=== PATIENT | male | born 1950 | race Caucasian/White ===

== ENCOUNTER 2018-08-29 12:14 | Inpatient (IN) | payer MEDICARE, OTHER ==
[~2018-08-29] VITALS: Ht 177.8 cm; Wt 78.4 kg
[~2018-08-29 12:14] MED LIST: ASPI-903 PO; CARV25TA79 PO; COU5 PO; FOLI-49 PO; LOSA50TA14 PO; OMEP20CA16 PO; POTA473S3 PO
[2018-08-29] MEDS ORDERED: ERTAPENEM SODIUM 1 GM in SOD CHLORIDE 0.9% 100 ML IVPB ONE (15:00)
[2018-08-29] MEDS ORDERED: ACETAMINOPHEN 325 MG TAB PO ONE (17:00)
--- NOTE | 2018-08-29 17:36 | ERD ---
ER Documentation Chief Complaint Chief Complaint PAINFUL URINATION HPI 67-year-old male past medical history of CKD, CVA, GA with angioplasty, hypertension presents for dysuria for about a week. He denies any fevers or chills. He does admit to flank pain bilaterally. There is also be 5 out of 10. Patient states that he was in similar hospital about a month ago and was given IV antibiotics and discharged home with 5 days of IV antibiotics. Patient's daughter is present and presented a lab sheet from about 4 days ago which showed E. coli more than 100,000 noted to be ESBL. She states that they were notified of results just today and was told to go to the ER. ROS All systems reviewed and are negative except as per history of present illness. Medications Home Meds Reported Medications Citric Acid/Potassium Citrate (Cytra-K Oral Solution) 473 Ml Solution, 30 ML PO BID 12/12/14 Aspirin* (Aspirin* Chew) 81 Mg Tab.chew, 81 MG PO DAILY, TAB.CHEW 12/12/14 Carvedilol* (Carvedilol*) 25 Mg Tablet, 25 MG PO BID, TAB 12/12/14 Losartan Potassium* (Losartan Potassium*) 50 Mg Tablet, 50 MG PO QHS, TAB 12/12/14 Folic Acid* (Folic Acid*) 1 Mg Tablet, 1 MG PO DAILY, TAB 12/12/14 Warfarin Sod (Coumadin) 5 Mg Tablet, 5 MG PO DAILY, TAB 12/12/14 Omeprazole* (Omeprazole*) 20 Mg Capsule.dr, 20 MG PO DAILY, CAP 12/12/14 Allergies Allergies: Coded Allergies: No Known Allergy (Unverified , 12/12/14) PMhx/Soc History of Surgery: Yes (multiple abdo sx) Anesthesia Reaction: No Hx Neurological Disorder: Yes (CVA) Hx Cardiac Disorders: Yes (htn) Hx Psychiatric Problems: No Hx Miscellaneous Medical Probl: No Hx Alcohol Use: No Hx Substance Use: No Hx Tobacco Use: No Physical Exam Vitals Vital Signs Date Temp Pulse Resp B/P (MAP) Pulse Ox O2 O2 Flow FiO2 Time Delivery Rate 08/29/18 98.7 59 19 174/78 98 12:51 (110) Physical Exam Const: No acute distress Resp: Clear to auscultation bilaterally Cardio: Regular rate and rhythm, no murmurs Abd: Soft, non tender, non distended. Normal bowel sounds Skin: No petechiae or rashes Back: No midline or flank tenderness Ext: No cyanosis, or edema Neur: Awake and alert Psych: Normal Mood and Affect Result Diagram: 08/29/18 1430 08/29/18 1430 Results 24 hrs Laboratory Tests Test 08/29/18 14:00 08/29/18 14:30 Urine Color YELLOW Urine Clarity CLOUDY Urine pH 7.0 Urine Specific [place] 1.009 Urine Ketones NEGATIVE mg/dL Urine Nitrite NEGATIVE mg/dL Urine Bilirubin NEGATIVE mg/dL Urine Urobilinogen NEGATIVE mg/dL Urine Leukocyte Esterase 2+ Natalie/ul Urine Microscopic RBC 64 /HPF Urine Microscopic WBC > 182 /HPF Urine Bacteria FEW /HPF Urine Mucus FEW /HPF Urine Hemoglobin 1+ mg/dL Urine Glucose NEGATIVE mg/dL Urine Total Protein 1+ mg/dl White Blood Count 7.8 10^3/ul Red Blood Count 4.45 10^6/ul Hemoglobin 13.2 g/dl Hematocrit 42.3 % Mean Corpuscular Volume 95.1 fl Mean Corpuscular Hemoglobin 29.7 pg Mean Corpuscular Hemoglobin Concent 31.2 g/dl Red Cell Distribution Width 13.8 % Platelet Count 175 10^3/UL Mean Platelet Volume 10.2 fl Immature Granulocytes % 0.500 % Neutrophils % 54.6 % Lymphocytes % 35.4 % Monocytes % 7.7 % Eosinophils % 1.3 % Basophils % 0.5 % Nucleated Red Blood Cells % 0.0 /100WBC Immature Granulocytes # 0.040 10^3/ul Neutrophils # 4.2 10^3/ul Lymphocytes # 2.8 10^3/ul Monocytes # 0.6 10^3/ul Eosinophils # 0.1 10^3/ul Basophils # 0.0 10^3/ul Nucleated Red Blood Cells # 0.0 10^3/ul Prothrombin Time 19.9 Sec Prothrombin Time Ratio 1.6 INR International Normalized Ratio 1.68 Activated Partial Thromboplast Time 37.6 Sec Sodium Level 141 mmol/L Potassium Level 4.5 mmol/L Chloride Level 114 mmol/L Carbon Dioxide Level 16 mmol/L Anion Gap 11 Blood Urea Nitrogen 21 mg/dl Creatinine 1.63 mg/dl Est Glomerular Filtrat Rate mL/min 42 mL/min Glucose Level 105 mg/dl Calcium Level 9.8 mg/dl Total Bilirubin 0.4 mg/dl Direct Bilirubin 0.00 mg/dl Indirect Bilirubin 0.4 mg/dl Aspartate Amino Transf (AST/SGOT) 22 IU/L Alanine Aminotransferase (ALT/SGPT) 14 IU/L Alkaline Phosphatase 101 IU/L Total Protein 7.6 g/dl Albumin 4.2 g/dl Globulin 3.40 g/dl Albumin/Globulin Ratio 1.23 Free Thyroxine 1.02 ng/dl Current Medications Medications Dose Sig/Giuliana Start Time Status Last (Trade) Ordered Route PRN Stop Time Admin Dose Reason Admin Ertapenem 1 100 ml @ ONCE ONCE 08/29/18 DC 08/29/18 gm/ Sodium 200 mls/hr IVPB 15:00 15:15 Chloride 08/29/18 15:29 650 mg ONCE ONCE 08/29/18 DC 08/29/18 Acetaminophen PO 17:00 16:51 (Tylenol 08/29/18 17:01 Tab) Ondansetron 4 mg BRIDGE ORDER 08/29/18 DC HCl (Zofran PRN IV 18:00 Inj) NAUSEA/VOMITI 08/29/18 18:06 NG 650 mg ER BRIDGE 08/29/18 DC Acetaminophen PRN PO 18:00 (Tylenol .MILD PAIN 08/29/18 18:06 Tab) 1-3 OR TEMP IV Flush 3 ml PER 08/29/18 (NS 3 ml) PROTOCOL IV 18:00 Ondansetron 4 mg Q6H PRN 08/29/18 HCl (Zofran IV 18:00 Inj) NAUSEA/VOMITI NG 650 mg Q6H PRN 08/29/18 Acetaminophen PO .PAIN 1-3 18:00 (Tylenol OR TEMP Tab) 1 tab Q6H PRN 08/29/18 Acetaminophen PO .MOD PAIN 18:00 / 4-6 Hydrocodone Bitart ([place] (5/325)) Morphine 2 mg Q4H PRN 08/29/18 Sulfate IV .SEVERE 18:00 (morphine) PAIN 7-10 Docusate 100 mg Q12H PRN 08/29/18 Sodium PO 18:00 (Colace) .CONSTIPATION Magnesium 30 ml DAILY PRN 08/29/18 Hydroxide PO 18:00 (Milk Of Mag) .CONSTIPATION Heparin 5,000 unit Q12 SC 08/29/18 DC Sodium 21:00 (Porcine) 08/29/18 21:00 (Heparin (5000 Units/1ml)) Sodium 1,000 ml @ [id number] IV 08/29/18 Chloride 75 mls/hr 17:36 Lorazepam 0.5 mg Q6H PRN 08/29/18 (Ativan) IV ANXIETY 18:00 Albuterol/ 3 ml Q4H RESP 08/29/18 Ipratropium THERAPY PRN 18:00 (Duoneb) HHN SHORTNESS OF BREATH Hydralazine 10 mg Q6H PRN 08/29/18 HCl IV ELEVATED 18:00 (Apresoline) BLOOD PRESSURE 1 tab Q5M PRN 08/29/18 Nitroglycerin SL ANGINA 18:00 (Nitroglyceri n (Sl Tab) 0.4 Mg) Aspirin 81 mg DAILY PO 08/30/18 (Aspirin) 09:00 Carvedilol 25 mg BID PO 08/29/18 (Coreg) 21:00 Potassium 30 ml BID PO 08/29/18 Citrate/ 21:00 Citric Acid (Polycitra (Ped)) Folic Acid 1 mg DAILY PO 08/30/18 (Folic Acid) 09:00 Losartan 50 mg QHS PO 08/29/18 Potassium 21:00 (Cozaar) Warfarin 5 mg DAILY@1700 08/30/18 Sodium PO 17:00 (Coumadin) 20 mg DAILY PO 08/30/18 UNV Miscellaneous 09:00 Information 50 ml @ Q12 IVPB 08/29/18 Meropenem/Sod 100 mls/hr 21:00 ium Chloride 40 mg DAILY@06 08/30/18 Pantoprazole PO 06:00 (Protonix Tab) Procedures/MDM Medical Decision Making: Patient presents with dysuria and bilateral flank pain. Lab work from clinic shows ESBL with multiple metabolic resistance. Patient appeared well on physical exam. ED course: UA and urine culture done about 4 days ago showed E. coli more than 100,000 with ESBL noted I reviewed the sensitivity and the organism is only sensitive to carbapenems. There is sensitivity to nitrofurantoin however NOREEN <16 and bactrim with NOREEN <20 CBC, CMP, kidney ultrasound, UA, urine culture as well as blood culture were ordered Patient started on IV. Patient was given IV ertapenem. Given the ESBL in the urine as well as possible drug sensitivity that appears to be sensitive to only IV drugs decision was made to admit patient for IV antibiotics. On-call hospitalist Dr. Pauline johnson was contacted and agreed to admit patient for further treatment. Disclaimer: Inadvertent spelling and grammatical errors are likely due to EHR/dictation software use and do not reflect on the overall quality of patient care. Also, please note that the electronic time recorded on this note does not necessarily reflect the actual time of the patient encounter. Departure Diagnosis: Primary Impression: Urinary tract infection due to extended-spectrum beta lactamase (ESBL) producing Escherichia coli Condition: Serious BROOKLYNN ZAPATA DO Aug 29, 2018 17:36
[2018-08-29] MEDS ORDERED: NITROGLYCERIN (SL) 0.4 MG TAB SL PRN (18:00)
[2018-08-29] MEDS ORDERED: ONDANSETRON 4 MG INJ IV PRN ×2 (18:00)
[2018-08-29] MEDS ORDERED: ALBUTEROL/IPRATROPIUM (NEB) 3 ML AMP HHN PRN (18:00)
[2018-08-29] MEDS ORDERED: NACL 0.9% 3 ML SYG IV SCH (18:00)
[2018-08-29] MEDS ORDERED: HYDROCODONE/APAP (5/325) TAB PO PRN (18:00)
[2018-08-29] MEDS ORDERED: hydrALAzine 20 MG INJ IV PRN (18:00)
[2018-08-29] MEDS ORDERED: DOCUSATE SODIUM 100 MG CAP PO PRN (18:00)
[2018-08-29] MEDS ORDERED: LORAZEPAM 2 MG INJ IV PRN (18:00)
[2018-08-29] MEDS ORDERED: morphine 2 MG INJ IV PRN (18:00)
[2018-08-29] MEDS ORDERED: MAGNESIUM HYDROXIDE 30ML CUP PO PRN (18:00)
[2018-08-29] MEDS ORDERED: ACETAMINOPHEN 325 MG TAB PO PRN ×2 (18:00)
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
[2018-08-29] MEDS ORDERED: POT CITRATE/CITRIC ACID (PO SYG) PO SCH (21:00)
[2018-08-29] MEDS ORDERED: HEPARIN 5,000 UNIT/1 ML VIAL SC SCH (21:00)
[2018-08-29] MEDS: LOSARTAN 50 MG TAB PO SCH (22:17)
[2018-08-29] MEDS: SOD CHLORIDE 0.45% 1,000 ML IV SCH (22:17)
[2018-08-29] MEDS: MEROPENEM 1 GM/50ML(PMX) 50 ML IVPB SCH (22:17)
[2018-08-29 22:26] VITALS: Ht 177.8 cm; Wt 78.4 kg
[2018-08-29 23:02] VITALS: BP 155/74; PULSE 54; RESP 20
[2018-08-30 03:37] VITALS: BP_SYST 117; BP_DIAS 116; BP_DIAS 61; PULSE 58; RESP 18
[2018-08-30] MEDS: PANTOPRAZOLE (EC) 40 MG TAB PO SCH (05:22)
[2018-08-30] MEDS: SOD CHLORIDE 0.45% 1,000 ML IV SCH ×3 (06:46→20:16)
[2018-08-30 08:25] VITALS: BP 140/73; PULSE 60; RESP 18
[2018-08-30] MEDS ORDERED: NON-FORMULARY/PATIENT OWN MED (Omeprazole* 20 MG) PO SCH (09:00)
[2018-08-30] MEDS: MEROPENEM 1 GM/50ML(PMX) 50 ML IVPB SCH ×2 (09:59→20:31)
[2018-08-30] MEDS: FOLIC ACID 1 MG TAB PO SCH (09:59)
[2018-08-30] MEDS: CITRIC ACID/NA CITRATE 30 ML CUP PO SCH ×2 (09:59→20:34)
[2018-08-30] MEDS: ASPIRIN 81 MG TAB PO SCH (09:59)
[2018-08-30 14:00] VITALS: BP 115/58; PULSE 63; RESP 18
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
[2018-08-30] MEDS: WARFARIN 5 MG TAB PO SCH (17:32)
[2018-08-30 20:00] VITALS: BP 138/72; PULSE 65; RESP 18
[2018-08-30] MEDS: LOSARTAN 50 MG TAB PO SCH (20:30)
[2018-08-31 02:00] VITALS: BP 113/55; PULSE 66; RESP 18
[2018-08-31] MEDS: PANTOPRAZOLE (EC) 40 MG TAB PO SCH (05:27)
[2018-08-31] MEDS: SOD CHLORIDE 0.45% 1,000 ML IV SCH (05:28)
[2018-08-31 08:00] VITALS: BP 149/83; PULSE 65; RESP 17
[2018-08-31] MEDS: CITRIC ACID/NA CITRATE 30 ML CUP PO SCH ×3 (09:00→21:00)
[2018-08-31] MEDS: FOLIC ACID 1 MG TAB PO SCH (09:05)
[2018-08-31] MEDS: ASPIRIN 81 MG TAB PO SCH (09:05)
[2018-08-31] MEDS: MEROPENEM 1 GM/50ML(PMX) 50 ML IVPB SCH ×2 (09:06→22:08)
[2018-08-31 14:00] VITALS: BP 142/74; PULSE 63; RESP 18
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
[2018-08-31] MEDS: WARFARIN 5 MG TAB PO SCH (18:13)
[2018-08-31 20:00] VITALS: BP 145/78; PULSE 59; RESP 18
[2018-08-31] MEDS: LOSARTAN 50 MG TAB PO SCH (22:09)
[2018-09-01 02:00] VITALS: BP 122/63; PULSE 77; RESP 18
[2018-09-01] MEDS: PANTOPRAZOLE (EC) 40 MG TAB PO SCH (05:32)
[2018-09-01 08:41] VITALS: BP 136/73; PULSE 62; RESP 18
[2018-09-01] MEDS: CITRIC ACID/NA CITRATE 30 ML CUP PO SCH ×2 (09:00→21:00)
[2018-09-01] MEDS: FOLIC ACID 1 MG TAB PO SCH (09:24)
[2018-09-01] MEDS: MEROPENEM 1 GM/50ML(PMX) 50 ML IVPB SCH ×2 (09:24→21:54)
[2018-09-01] MEDS: ASPIRIN 81 MG TAB PO SCH (09:25)
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
[2018-09-01] MEDS ORDERED: LIDOCAINE 1% (MPF) 5 ML VIAL SC ONE (14:00)
[2018-09-01 14:51] VITALS: BP 136/69; PULSE 64; RESP 18
[2018-09-01] MEDS: WARFARIN 5 MG TAB PO SCH (17:40)
[2018-09-01 20:00] VITALS: BP 132/59; PULSE 59; RESP 18
[2018-09-01] MEDS: LOSARTAN 50 MG TAB PO SCH (21:52)
[2018-09-02 02:00] VITALS: BP 115/65; PULSE 59; RESP 17
[2018-09-02] MEDS: PANTOPRAZOLE (EC) 40 MG TAB PO SCH (05:45)
[2018-09-02 08:00] VITALS: BP 114/60; PULSE 60; RESP 18
[2018-09-02] MEDS: FOLIC ACID 1 MG TAB PO SCH (08:37)
[2018-09-02] MEDS: ASPIRIN 81 MG TAB PO SCH (08:37)
[2018-09-02] MEDS: CITRIC ACID/NA CITRATE 30 ML CUP PO SCH ×2 (08:38→20:09)
[2018-09-02] MEDS: MEROPENEM 1 GM/50ML(PMX) 50 ML IVPB SCH ×2 (08:38→20:09)
--- NOTE | 2018-09-02 12:50 | PN ---
Date/Time of Note Date/Time of Note DATE: 09/02/18 TIME: 12:42 Assessment/Plan VTE Prophylaxis Risk score (from Ns)>0 risk: 3 SCD applied (from Ns): Yes Pharmacological prophylaxis: warfarin tx Lines/Catheters IV [facility]ter Type (from [facility]): [place] Urinary Cath still in place: No Assessment/Plan Assessment/Plan 1. ESBL UTI, awaiting for PICC line home health set up for meropenem 2. Hypertension, controlled 3. CAD with history of prior myocardial infarction in the past, stable 4. CKD, stage III, stable 5. H/o left BKA 6. Deep venous thrombosis prophylaxis. on Coumadin. Result Diagram: 09/02/18 0620 09/02/18 0620 Results 24hrs Laboratory Tests Test 09/02/18 06:20 09/02/18 10:12 White Blood Count 7.6 # Red Blood Count 4.01 L Hemoglobin 11.9 L Hematocrit 38.0 L Mean Corpuscular Volume 94.8 Mean Corpuscular Hemoglobin 29.7 Mean Corpuscular Hemoglobin Concent 31.3 L Red Cell Distribution Width 14.1 Platelet Count 156 Mean Platelet Volume 10.6 H Immature Granulocytes % 0.400 Neutrophils % 50.9 Lymphocytes % 37.6 Monocytes % 8.3 Eosinophils % 2.1 Basophils % 0.7 Nucleated Red Blood Cells % 0.0 Immature Granulocytes # 0.030 Neutrophils # 3.9 Lymphocytes # 2.9 Monocytes # 0.6 Eosinophils # 0.2 Basophils # 0.1 Nucleated Red Blood Cells # 0.0 Sodium Level 143 Potassium Level 4.3 Chloride Level 120 H Carbon Dioxide Level 15 L Anion Gap 8 Blood Urea Nitrogen 18 Creatinine 1.45 H Est Glomerular Filtrat Rate mL/min 48 L Glucose Level 107 Calcium Level 9.1 Prothrombin Time 25.7 #H Prothrombin Time Ratio 2.0 INR International Normalized Ratio 2.34 Subjective 24 Hr Interval Summary Free Text/Dictation no fever or chills. no dysuria Exam/Review of Systems Exam Vitals Vital Signs Date Temp Pulse Resp B/P (MAP) Pulse Ox O2 O2 Flow FiO2 Time Delivery Rate 09/02/18 98.0 60 18 114/60 96 08:00 (78) 09/01/18 Room Air 08:41 Intake and Output 09/01/18 09/01/18 09/02/18 1515:00 23:00 07:00 IntakeIntake Total 750 ml 550 ml 150 ml OutputOutput Total 400 ml 450 ml 240 ml BalanceBalance 350 ml 100 ml -90 ml Constitutional: alert, oriented, well developed Psych: no complaints, nl mood/affect Head: normocephalic, atraumatic Eyes: nl conjunctiva, EOMI, nl lids, nl sclera, PERRL ENMT: nl external ears & nose, nl lips & teeth, nl nasal mucosa & septum Neck: supple, non-tender Respiratory: clear to auscultation, normal air movement; No congested cough, No crackles/rales, No diminished breath sounds, No intercostal retraction, No labored breathing, No respirations, No tactile fremitus, No wheezing, No other Cardiovascular: regular rate and rhythm, nl pulses; No bruits, No diastolic murmur, No edema, No gallop, No irregular rhythm, No jugular venous distention (JVD), No murmurs/extra sounds, No rub, No systolic murmur, No S3, No S4, No other Gastrointestinal: soft, nl liver, spleen, non-tender; No ascites, No bowel sounds, No distended, No firm, No hepatomegaly, No mass, No rebound or guarding, No splenomegaly, No surgical scars, No tender, No other Musculoskeletal: other (h/o left BKA) Extremities: normal pulses; No calf tenderness, No cyanosis, No clubbing, No edema, No pitting pedal edema, No palpable cord, No tenderness, No other Neurological: RN ELIGIBILITY II-XII intact, nl mental status, nl speech, nl strength Skin: nl turgor, rash or lesions Results Results 24hrs Laboratory Tests Test 09/02/18 06:20 09/02/18 10:12 White Blood Count 7.6 # Red Blood Count 4.01 L Hemoglobin 11.9 L Hematocrit 38.0 L Mean Corpuscular Volume 94.8 Mean Corpuscular Hemoglobin 29.7 Mean Corpuscular Hemoglobin Concent 31.3 L Red Cell Distribution Width 14.1 Platelet Count 156 Mean Platelet Volume 10.6 H Immature Granulocytes % 0.400 Neutrophils % 50.9 Lymphocytes % 37.6 Monocytes % 8.3 Eosinophils % 2.1 Basophils % 0.7 Nucleated Red Blood Cells % 0.0 Immature Granulocytes # 0.030 Neutrophils # 3.9 Lymphocytes # 2.9 Monocytes # 0.6 Eosinophils # 0.2 Basophils # 0.1 Nucleated Red Blood Cells # 0.0 Sodium Level 143 Potassium Level 4.3 Chloride Level 120 H Carbon Dioxide Level 15 L Anion Gap 8 Blood Urea Nitrogen 18 Creatinine 1.45 H Est Glomerular Filtrat Rate mL/min 48 L Glucose Level 107 Calcium Level 9.1 Prothrombin Time 25.7 #H Prothrombin Time Ratio 2.0 INR International Normalized Ratio 2.34 Medications Medication Current Medications IV Flush (NS 3 ml) 3 ml PER PROTOCOL IV ; Start 08/29/18 at 18:00 Ondansetron HCl (Zofran Inj) 4 mg Q6H PRN IV NAUSEA/VOMITING; Start 08/29/18 at 18:00 Acetaminophen (Tylenol Tab) 650 mg Q6H PRN PO .PAIN 1-3 OR TEMP; Start 08/29/18 at 18:00 Acetaminophen/ Hydrocodone Bitart ([place] (5/325)) 1 tab Q6H PRN PO .MOD PAIN 4- 6; Start 08/29/18 at 18:00 Morphine Sulfate (morphine) 2 mg Q4H PRN IV .SEVERE PAIN 7-10; Start 08/29/18 at 18:00 Docusate Sodium (Colace) 100 mg Q12H PRN PO .CONSTIPATION; Start 08/29/18 at 18:00 Magnesium Hydroxide (Milk Of Mag) 30 ml DAILY PRN PO .CONSTIPATION Last administered on 08/31/18at 12:04; Admin Dose 30 ML; Start 08/29/18 at 18:00 Sodium Chloride 1,000 ml @ 75 mls/hr [id number] IV Last administered on 08/31/18at 05:28; Admin Dose 75 MLS/HR; Start 08/29/18 at 17:36; Status Hold Lorazepam (Ativan) 0.5 mg Q6H PRN IV ANXIETY; Start 08/29/18 at 18:00 Albuterol/ Ipratropium (Duoneb) 3 ml Q4H RESP THERAPY PRN HHN SHORTNESS OF BREATH; Start 08/29/18 at 18:00 Hydralazine HCl (Apresoline) 10 mg Q6H PRN IV ELEVATED BLOOD PRESSURE; Start 08/29/18 at 18:00 Nitroglycerin (Nitroglycerin (Sl Tab) 0.4 Mg) 1 tab Q5M PRN SL ANGINA; Start 08/29/18 at 18:00 Aspirin (Aspirin) 81 mg DAILY PO Last administered on 09/02/18 08:37; Admin Dose 81 MG; Start 08/30/18 at 09:00 Carvedilol (Coreg) 25 mg BID PO Last administered on 09/02/18 08:38; Admin Dose 25 MG; Start 08/29/18 at 21:00 Folic Acid (Folic Acid) 1 mg DAILY PO Last administered on 09/02/18 08:37; Admin Dose 1 MG; Start 08/30/18 at 09:00 Losartan Potassium (Cozaar) 50 mg QHS PO Last administered on 09/01/18 21:52; Admin Dose 50 MG; Start 08/29/18 at 21:00 Warfarin Sodium (Coumadin) 5 mg DAILY@1700 PO Last administered on 09/01/18 17:40; Admin Dose 5 MG; Start 08/30/18 at 17:00 Meropenem/Sodium Chloride 50 ml @ 100 mls/hr Q12 IVPB Last administered on 08:38; Admin Dose 100 MLS/HR; Start 08/29/18 at 21:00 Pantoprazole (Protonix Tab) 40 mg DAILY@06 PO Last administered on 09/02/18 05:45; Admin Dose 40 MG; Start 08/30/18 at 06:00 Citric Acid/ Sodium Citrate (Bicitra) 30 ml BID PO Last administered on 08/30/18 09:59; Admin Dose 30 ML; Start 08/30/18 at 09:00 ITALO SINGH MD Sep 02, 2018 12:50
[2018-09-02 14:13] VITALS: BP 102/58; PULSE 61; RESP 19
--- NOTE | 2018-09-02 14:58 | PN ---
DATE: 09/01/2018 Thank you, Dr. Diego for this consultation. HISTORY OF PRESENT ILLNESS: This is a well-developed, elderly man with a past medical histo ry significant for chronic kidney disease, coronary artery disease, history of myocardial infarction, hypertension. The patient also has a history of prior Escherichia coli extended-spectrum beta-lacta miko urinary tract infection. The patient had been having dysuria for the last 2 weeks and was admitted with above symptoms. MICROBIOLOGY: Urine culture at outside clinic came back positive for E. coli ESBL. He came with a t emperature of 98.7, pulse 60, respirations 19, blood pressure 174/78, saturation 98 on room air. WBC 7.8, H and H 13.2 and 42.3, platelets 175, no shift, no bands. BUN 21, creatinine 1.63. DIAGNOSTICS: A renal ultrasound revealed no evidence of hydronephrosis, mildly dilated right renal p davian suspicious for extrarenal pelvis. SUBJECTIVE: The patient was started on meropenem. ALLERGIES: He has no allergies. SOCIAL HISTORY: The patient came from home. Denies smoking, alcohol or illicits. REVIEW OF SYSTEMS: As per history. PHYSICAL EXAMINATION: GENERAL: Well-nourished elderly man who is awake, in no distress. HEENT: Head atraumatic, normocephalic. Sclerae anicteric. Buccal mucosa dry. NECK: Supple. CHEST: Rise symmetrical. Breath sounds diminished to bases. HEART: S1, S2. ABDOMEN: Soft, bowel tones present. EXTREMITIES: Without cyanosis. DIAGNOSTIC IMPRESSION: This is a 67-year-old man admitted with recurrent Escherichia coli extended-s pectrum beta-lactamase urinary tract infection. The patient is currently on appropriate antibiotic r egimen. Recommend PICC line placement and treating him for 2 weeks. We can change antibiotics to IV Invanz to be given once daily. We will also order a bladder scan to make sure he is not retaining u rine and straight cath him as needed. Discussed with Dr. Perea, covering for Dr. Calderon. Dictated By: TOMAS PHAM SENIOR [employer] ANALYST for HERLINDA CALDERON MD NI/NTS Conf#: [id number] DID#: [id number] CC: BIBI DIEGO;*EndCC*
--- NOTE | 2018-09-02 15:12 | CONS ---
Assessment/Plan Assessment/Plan Hospital Course (Demo Recall) No acute changes overnight. Patient is alert feels better looks comfortable no fevers overnight. WBC 7.6, no shift no bands. BUN 18 creatinine 1.45 Microbiology: Urine culture growing E. coli ESBL Antimicrobials: Meropenem Indwelling: Left upper extremity PICC line Physical examination: Well-developed elderly man who is in no distress. Head atraumatic normocephalic sclera nonicteric vehicle mucosa pink neck is supple chest rise symmetrical. Breath sounds clear. Heart: S1-S2. Abdomen soft bowel sounds present. Assessment: 1. Recurrent UTI 2. Possible urinary retention 3. Hypertension 4. Chronic kidney disease 5. History of left below-knee amputation Plan: Patient remained stable, continue present care, anticipate discharge on meropenem or Invanz to complete 2 weeks antibiotics Consultation Date/Type/Reason Admit Date/Time Aug 30, 2018 at 06:49 Initial Consult Date Type of Consult ID Date/Time of Note DATE: 09/02/18 TIME: 15:12 Exam/Review of Systems Exam Vitals Vital Signs Date Temp Pulse Resp B/P (MAP) Pulse Ox O2 O2 Flow FiO2 Time Delivery Rate 09/02/18 97.4 61 19 102/58 98 14:13 (73) 09/01/18 Room Air 08:41 Intake and Output 09/01/18 09/01/18 09/02/18 1414:59 22:59 06:59 IntakeIntake Total 50 ml 1250 ml 150 ml OutputOutput Total 400 ml 450 ml 240 ml BalanceBalance -350 ml 800 ml -90 ml Results Result Diagram: 09/02/18 0620 09/02/18 0620 Results 24hrs Laboratory Tests Test 09/02/18 06:20 09/02/18 10:12 White Blood Count 7.6 # Red Blood Count 4.01 L Hemoglobin 11.9 L Hematocrit 38.0 L Mean Corpuscular Volume 94.8 Mean Corpuscular Hemoglobin 29.7 Mean Corpuscular Hemoglobin Concent 31.3 L Red Cell Distribution Width 14.1 Platelet Count 156 Mean Platelet Volume 10.6 H Immature Granulocytes % 0.400 Neutrophils % 50.9 Lymphocytes % 37.6 Monocytes % 8.3 Eosinophils % 2.1 Basophils % 0.7 Nucleated Red Blood Cells % 0.0 Immature Granulocytes # 0.030 Neutrophils # 3.9 Lymphocytes # 2.9 Monocytes # 0.6 Eosinophils # 0.2 Basophils # 0.1 Nucleated Red Blood Cells # 0.0 Sodium Level 143 Potassium Level 4.3 Chloride Level 120 H Carbon Dioxide Level 15 L Anion Gap 8 Blood Urea Nitrogen 18 Creatinine 1.45 H Est Glomerular Filtrat Rate mL/min 48 L Glucose Level 107 Calcium Level 9.1 Prothrombin Time 25.7 #H Prothrombin Time Ratio 2.0 INR International Normalized Ratio 2.34 Medications Medication Current Medications IV Flush (NS 3 ml) 3 ml PER PROTOCOL IV ; Start 08/29/18 at 18:00 Ondansetron HCl (Zofran Inj) 4 mg Q6H PRN IV NAUSEA/VOMITING; Start 08/29/18 at 18:00 Acetaminophen (Tylenol Tab) 650 mg Q6H PRN PO .PAIN 1-3 OR TEMP; Start 08/29/18 at 18:00 Acetaminophen/ Hydrocodone Bitart ([place] (5/325)) 1 tab Q6H PRN PO .MOD PAIN 4- 6; Start 08/29/18 at 18:00 Morphine Sulfate (morphine) 2 mg Q4H PRN IV .SEVERE PAIN 7-10; Start 08/29/18 at 18:00 Docusate Sodium (Colace) 100 mg Q12H PRN PO .CONSTIPATION; Start 08/29/18 at 18:00 Magnesium Hydroxide (Milk Of Mag) 30 ml DAILY PRN PO .CONSTIPATION Last administered on 08/31/18at 12:04; Admin Dose 30 ML; Start 08/29/18 at 18:00 Sodium Chloride 1,000 ml @ 75 mls/hr [id number] IV Last administered on 08/31/18at 05:28; Admin Dose 75 MLS/HR; Start 08/29/18 at 17:36; Status Hold Lorazepam (Ativan) 0.5 mg Q6H PRN IV ANXIETY; Start 08/29/18 at 18:00 Albuterol/ Ipratropium (Duoneb) 3 ml Q4H RESP THERAPY PRN HHN SHORTNESS OF BREATH; Start 08/29/18 at 18:00 Hydralazine HCl (Apresoline) 10 mg Q6H PRN IV ELEVATED BLOOD PRESSURE; Start 08/29/18 at 18:00 Nitroglycerin (Nitroglycerin (Sl Tab) 0.4 Mg) 1 tab Q5M PRN SL ANGINA; Start 08/29/18 at 18:00 Aspirin (Aspirin) 81 mg DAILY PO Last administered on 09/02/18 08:37; Admin Dose 81 MG; Start 08/30/18 at 09:00 Carvedilol (Coreg) 25 mg BID PO Last administered on 09/02/18 08:38; Admin Dose 25 MG; Start 08/29/18 at 21:00 Folic Acid (Folic Acid) 1 mg DAILY PO Last administered on 09/02/18 08:37; Admin Dose 1 MG; Start 08/30/18 at 09:00 Losartan Potassium (Cozaar) 50 mg QHS PO Last administered on 09/01/18 21:52; Admin Dose 50 MG; Start 08/29/18 at 21:00 Warfarin Sodium (Coumadin) 5 mg DAILY@1700 PO Last administered on 09/01/18 17:40; Admin Dose 5 MG; Start 08/30/18 at 17:00 Meropenem/Sodium Chloride 50 ml @ 100 mls/hr Q12 IVPB Last administered on 09/02/18 08:38; Admin Dose 100 MLS/HR; Start 08/29/18 at 21:00 Pantoprazole (Protonix Tab) 40 mg DAILY@06 PO Last administered on 09/02/18 05:45; Admin Dose 40 MG; Start 08/30/18 at 06:00 Citric Acid/ Sodium Citrate (Bicitra) 30 ml BID PO Last administered on 08/30/18 09:59; Admin Dose 30 ML; Start 08/30/18 at 09:00 TOMAS PHAM NP Sep 02, 2018 15:12
[2018-09-02] MEDS: WARFARIN 5 MG TAB PO SCH (16:37)
[2018-09-02 19:38] VITALS: BP 129/60; PULSE 58; RESP 20
[2018-09-02] MEDS: LOSARTAN 50 MG TAB PO SCH (20:08)
[2018-09-03 02:00] VITALS: BP 88/54; PULSE 63; RESP 18
[2018-09-03 02:30] VITALS: BP 100/54
[2018-09-03] MEDS: PANTOPRAZOLE (EC) 40 MG TAB PO SCH (06:15)
[2018-09-03 08:02] VITALS: BP 109/60; PULSE 66; RESP 18
[2018-09-03] MEDS: CITRIC ACID/NA CITRATE 30 ML CUP PO SCH ×2 (09:00→20:22)
[2018-09-03] MEDS: ASPIRIN 81 MG TAB PO SCH (09:01)
[2018-09-03] MEDS: FOLIC ACID 1 MG TAB PO SCH (09:01)
[2018-09-03] MEDS: MEROPENEM 1 GM/50ML(PMX) 50 ML IVPB SCH ×2 (09:03→20:22)
[2018-09-03] MEDS ORDERED: MERO1VIA3 IV (13:06)
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
[2018-09-03 14:21] VITALS: BP 151/92; PULSE 88; RESP 20
--- NOTE | 2018-09-03 14:41 | CONS ---
Assessment/Plan Assessment/Plan Hospital Course (Demo Recall) No acute events patient is alert and looks comfortable no fevers overnight, no hematuria noticed dysuria Microbiology: Urine culture growing E. coli ESBL Antimicrobials: Meropenem Indwelling: Left upper extremity PICC line Physical examination: Well-developed elderly man who is in no distress. Head atraumatic normocephalic sclera nonicteric vehicle mucosa pink neck is supple chest rise symmetrical. Breath sounds clear. Heart: S1-S2. Abdomen soft bowel sounds present. Assessment: 1. Recurrent UTI 2. Possible urinary retention 3. Hypertension 4. Chronic kidney disease 5. History of left below-knee amputation Plan: Patient remained stable, pending discharge on meropenem or Invanz to complete 2 weeks antibiotics Consultation Date/Type/Reason Admit Date/Time Aug 30, 2018 at 06:49 Initial Consult Date Type of Consult ID Date/Time of Note DATE: 09/03/18 TIME: 14:41 Exam/Review of Systems Exam Vitals Vital Signs Date Temp Pulse Resp B/P (MAP) Pulse Ox O2 O2 Flow FiO2 Time Delivery Rate 09/03/18 98.0 88 20 151/92 99 Room Air 14:21 (111) Intake and Output 09/02/18 09/02/18 09/03/18 1515:00 23:00 07:00 IntakeIntake Total 1010 ml 410 ml 200 ml OutputOutput Total 1300 ml 550 ml 350 ml BalanceBalance -290 ml -140 ml -150 ml Results Result Diagram: 09/03/18 0432 09/03/18 0432 Results 24hrs Laboratory Tests Test 09/03/18 04:32 09/03/18 09:11 White Blood Count 7.8 Red Blood Count 3.80 L Hemoglobin 11.5 L Hematocrit 36.5 L Mean Corpuscular Volume 96.1 Mean Corpuscular Hemoglobin 30.3 Mean Corpuscular Hemoglobin Concent 31.5 L Red Cell Distribution Width 14.1 Platelet Count 142 Mean Platelet Volume 10.3 Immature Granulocytes % 0.400 Neutrophils % 47.8 Lymphocytes % 41.2 Monocytes % 8.0 Eosinophils % 2.2 Basophils % 0.4 Nucleated Red Blood Cells % 0.0 Immature Granulocytes # 0.030 Neutrophils # 3.7 Lymphocytes # 3.2 H Monocytes # 0.6 Eosinophils # 0.2 Basophils # 0.0 Nucleated Red Blood Cells # 0.0 Sodium Level 143 Potassium Level 4.2 Chloride Level 115 H Carbon Dioxide Level 17 L Anion Gap 11 Blood Urea Nitrogen 21 H Creatinine 1.53 H Est Glomerular Filtrat Rate mL/min 45 L Glucose Level 103 Calcium Level 8.9 Prothrombin Time 34.1 #H Prothrombin Time Ratio 2.7 INR International Normalized Ratio 3.37 Medications Medication Current Medications IV Flush (NS 3 ml) 3 ml PER PROTOCOL IV ; Start 08/29/18 at 18:00 Ondansetron HCl (Zofran Inj) 4 mg Q6H PRN IV NAUSEA/VOMITING; Start 08/29/18 at 18:00 Acetaminophen (Tylenol Tab) 650 mg Q6H PRN PO .PAIN 1-3 OR TEMP; Start 08/29/18 at 18:00 Acetaminophen/ Hydrocodone Bitart ([place] (5/325)) 1 tab Q6H PRN PO .MOD PAIN 4- 6; Start 08/29/18 at 18:00 Morphine Sulfate (morphine) 2 mg Q4H PRN IV .SEVERE PAIN 7-10; Start 08/29/18 at 18:00 Docusate Sodium (Colace) 100 mg Q12H PRN PO .CONSTIPATION; Start 08/29/18 at 18:00 Magnesium Hydroxide (Milk Of Mag) 30 ml DAILY PRN PO .CONSTIPATION Last administered on 08/31/18at 12:04; Admin Dose 30 ML; Start 08/29/18 at 18:00 Sodium Chloride 1,000 ml @ 75 mls/hr [id number] IV Last administered on 08/31/18at 05:28; Admin Dose 75 MLS/HR; Start 08/29/18 at 17:36; Status Hold Lorazepam (Ativan) 0.5 mg Q6H PRN IV ANXIETY; Start 08/29/18 at 18:00 Albuterol/ Ipratropium (Duoneb) 3 ml Q4H RESP THERAPY PRN HHN SHORTNESS OF BREATH; Start 08/29/18 at 18:00 Hydralazine HCl (Apresoline) 10 mg Q6H PRN IV ELEVATED BLOOD PRESSURE; Start 08/29/18 at 18:00 Nitroglycerin (Nitroglycerin (Sl Tab) 0.4 Mg) 1 tab Q5M PRN SL ANGINA; Start 08/29/18 at 18:00 Aspirin (Aspirin) 81 mg DAILY PO Last administered on 09/03/18 09:01; Admin Dose 81 MG; Start 08/30/18 at 09:00 Carvedilol (Coreg) 25 mg BID PO Last administered on 09/03/18 09:02; Admin Dose 25 MG; Start 08/29/18 at 21:00 Folic Acid (Folic Acid) 1 mg DAILY PO Last administered on 09/03/18 09:01; Admin Dose 1 MG; Start 08/30/18 at 09:00 Losartan Potassium (Cozaar) 50 mg QHS PO Last administered on 09/02/18 20:08; Admin Dose 50 MG; Start 08/29/18 at 21:00 Warfarin Sodium (Coumadin) 5 mg DAILY@1700 PO Last administered on 09/02/18 16:37; Admin Dose 5 MG; Start 08/30/18 at 17:00; Status Hold Meropenem/Sodium Chloride 50 ml @ 100 mls/hr Q12 IVPB Last administered on 09/03/18 09:03; Admin Dose 100 MLS/HR; Start 08/29/18 at 21:00 Pantoprazole (Protonix Tab) 40 mg DAILY@06 PO Last administered on 09/03/18 06:15; Admin Dose 40 MG; Start 08/30/18 at 06:00 Citric Acid/ Sodium Citrate (Bicitra) 30 ml BID PO Last administered on 08/30/18 09:59; Admin Dose 30 ML; Start 08/30/18 at 09:00 IV Flush (NS 10 ml) 10 ml PRN PRN IV IV PROTOCOL; Start 09/02/18 at 15:30 TOMAS PHAM NP Sep 03, 2018 14:41
[2018-09-03] MEDS: LOSARTAN 50 MG TAB PO SCH (20:20)
[2018-09-03 20:57] VITALS: BP 140/78; PULSE 69; RESP 20
== END 2018-09-03 21:13 | disposition home IV services (08) | DRG 690 ==
LOC: FTE 12:14 → PP2 17:35 → EDBEDREQSVC 19:13 → EDBEDREQTM 19:13 → EDBEDREQ 19:13 → OBSVTOIN 08-30 06:49
PROVIDERS: ADMIT Hospitalist; ATTEND Internal Medicine
PROC: 02HV33Z Insertion of Infusion Device into Superior Vena Cava, Percutaneous Approach (ICD-10-PCS; principal; 2018-09-02)
PROC: B548ZZA Ultrasonography of Superior Vena Cava, Guidance (ICD-10-PCS; 2018-09-02)
DX: N39.0 Urinary tract infection, site not specified (principal); B96.20 Unspecified Escherichia coli [E. coli] as the cause of diseases classified elsewhere; Z16.12 Extended spectrum beta lactamase (ESBL) resistance; R30.0 Dysuria; I12.9 Hypertensive chronic kidney disease with stage 1 through stage 4 chronic kidney disease, or unspecified chronic kidney disease; I25.2 Old myocardial infarction; I25.10 Atherosclerotic heart disease of native coronary artery without angina pectoris; Z89.512 Acquired absence of left leg below knee; N18.3 Chronic kidney disease, stage 3 (moderate)
CPT/HCPCS: 36569; 71045; 76775; 76937; 80048; 80053; 80061; 81001; 83036; 83735; 84100; 84439; 84443; 85025; 85610; 85730; 87086; 96365; 97161; G0378; J2185

== ENCOUNTER 2018-11-11 19:39 | Emergency (ER) | payer OTHER ==
[~2018-11-11] VITALS: Ht 175.3 cm; Wt 85.0 kg
[~2018-11-11 19:39] MED LIST changes: +MERO1VIA3 IV
[2018-11-11 19:42] VITALS: Ht 175.3 cm; Wt 85.0 kg
--- NOTE | 2018-11-11 20:02 | ERD ---
ER Documentation Chief Complaint Chief Complaint testicular pain/swelling x 6 days HPI This is a 67-year-old man complaining of left-sided scrotal/testicular pain with recent dysuria. He denies discharge from the penile meatus, no blood per rectum or melena, no complaints of fevers or chills, no flank pain, no chest pain or shortness of breath, no URI symptoms. Patient has had UTI's in the past. ROS All systems reviewed and are negative except as per history of present illness. Medications Home Meds Active Scripts Oxycodone HCl/Acetaminophen (Percocet 5-325 mg Tablet) 1 Each Tablet, 1 EACH PO BID PRN for PAIN LEVEL 6-10, #10 TAB Prov:AVILA BEACH MD 11/11/18 Doxycycline Hyclate* (Doxycycline Hyclate*) 100 Mg Tablet., 100 MG PO BID for 10 Days, #20 TAB Prov:AVILA BEACH MD 11/11/18 Meropenem (MEROPENEM) 1 Gm Vial, 1 GM IV Q12H for 6 Days, VIAL Prov:ITALO SINGH MD 09/03/18 Reported Medications Citric Acid/Potassium Citrate (Cytra-K Oral Solution) 473 Ml Solution, 30 ML PO BID 12/12/14 Aspirin* (Aspirin* Chew) 81 Mg Tab.chew, 81 MG PO DAILY, TAB.CHEW 12/12/14 Carvedilol* (Carvedilol*) 25 Mg Tablet, 25 MG PO BID, TAB 12/12/14 Losartan Potassium* (Losartan Potassium*) 50 Mg Tablet, 50 MG PO QHS, TAB 12/12/14 Folic Acid* (Folic Acid*) 1 Mg Tablet, 1 MG PO DAILY, TAB 12/12/14 Warfarin Sod (Coumadin) 5 Mg Tablet, 5 MG PO DAILY, TAB 12/12/14 Omeprazole* (Omeprazole*) 20 Mg Capsule.dr, 20 MG PO DAILY, CAP 12/12/14 Allergies Allergies: Coded Allergies: No Known Allergy (Unverified , 12/12/14) PMhx/Soc History of urinary retention and UTIs, hypertension, left below-knee amputation, CAD with a history of [place], chronic kidney disease not yet on hemodialysis History of Surgery: Yes (abdominal surgeries (date unknow) states of 30 surgeries) Anesthesia Reaction: No Hx Neurological Disorder: No Hx Respiratory Disorders: Yes (asthma) Hx Cardiac Disorders: Yes (heart attack) Hx Psychiatric Problems: No Hx Miscellaneous Medical Probl: Yes (rior ESBL E. coli urinary tract infection off and on for the last 30 years ) Hx Alcohol Use: No Hx Substance Use: No Hx Tobacco Use: No FmHx Family History: diabetes Physical Exam Vitals Vital Signs Date Temp Pulse Resp B/P (MAP) Pulse Ox O2 O2 Flow FiO2 Time Delivery Rate 11/11/18 97.8 72 18 178/91 97 19:42 (120) Physical Exam Const: No acute distress Head: Atraumatic Eyes: Normal Conjunctiva ENT: Normal External Ears, Nose and Mouth. Neck: Full range of motion. No meningismus. Resp: Clear to auscultation bilaterally Cardio: Regular rate and rhythm, no murmurs Abd: Soft, non tender, non distended. Normal bowel sounds Skin: No petechiae or rashes Back: No midline or flank tenderness Ext: No cyanosis, or edema Neur: Awake and alert Psych: Normal Mood and Affect Result Diagram: 11/11/18201411/11/182014 Results 24 hrs Laboratory Tests Test 11/11/18 20:15 11/11/18 20:16 White Blood Count 12.1 10^3/ul Red Blood Count 4.18 10^6/ul Hemoglobin 12.5 g/dl Hematocrit 39.2 % Mean Corpuscular Volume 93.8 fl Mean Corpuscular Hemoglobin 29.9 pg Mean Corpuscular Hemoglobin Concent 31.9 g/dl Red Cell Distribution Width 14.3 % Platelet Count 203 10^3/UL Mean Platelet Volume 10.0 fl Immature Granulocytes % 1.900 % Neutrophils % 72.3 % Lymphocytes % 20.2 % Monocytes % 4.2 % Eosinophils % 1.0 % Basophils % 0.4 % Nucleated Red Blood Cells % 0.0 /100WBC Immature Granulocytes # 0.230 10^3/ul Neutrophils # 8.7 10^3/ul Lymphocytes # 2.4 10^3/ul Monocytes # 0.5 10^3/ul Eosinophils # 0.1 10^3/ul Basophils # 0.1 10^3/ul Nucleated Red Blood Cells # 0.0 10^3/ul Sodium Level 138 mmol/L Potassium Level 5.0 mmol/L Chloride Level 113 mmol/L Carbon Dioxide Level 18 mmol/L Anion Gap 7 Blood Urea Nitrogen 36 mg/dl Creatinine 1.41 mg/dl Est Glomerular Filtrat Rate mL/min 50 mL/min Glucose Level 112 mg/dl Calcium Level 9.2 mg/dl Urine Color YELLOW Urine Clarity CLOUDY Urine pH 8.0 Urine Specific [place] 1.008 Urine Ketones NEGATIVE mg/dL Urine Nitrite POSITIVE mg/dL Urine Bilirubin NEGATIVE mg/dL Urine Urobilinogen NEGATIVE mg/dL Urine Leukocyte Esterase 3+ Natalie/ul Urine Microscopic RBC 8 /HPF Urine Microscopic WBC 89 /HPF Urine Bacteria FEW /HPF Urine Mucus FEW /HPF Urine Hemoglobin 1+ mg/dL Urine Glucose NEGATIVE mg/dL Urine Total Protein 1+ mg/dl Current Medications Medications Dose Sig/Giuliana Start Time Status Last (Trade) Ordered Route PRN Stop Time Admin Dose Reason Admin Oxycodone/ 1 tab ONCE ONCE 11/11/18 DC 11/11/18 Acetaminophen PO 20:30 20:19 (Percocet 11/11/18 20:31 (5/ 325)) Sodium 500 ml @ Q1H STAT 11/11/18 DC 11/11/18 Chloride 500 mls/hr IV 20:07 20:18 11/11/18 21:06 Ceftriaxone 50 ml @ ONCE ONCE 11/11/18 DC 11/11/18 Sodium 100 mls/hr IVPB 21:00 21:17 11/11/18 21:29 Procedures/MDM IV line was established patient was placed on hospital monitor rhythm strip revealed a sinus rhythm at about 80 bpm with upright P and T waves. Patient was afebrile I administered 500 cc normal saline IV, Percocet 1 tablet p.o. Testicular ultrasound was performed, IMPRESSION: 1. Status post right orchiectomy. 2. Hypoechoic nodule in the mid left testis measuring 0.4 cm. Follow-up ultrasound in 6 weeks is advised. 3. Enlarged hyperemic left epididymis which may indicate epididymitis. Clinical correlation advised. 4. Multiloculated left hydrocele which may be related to the epididymitis. 5. Mild thickening of the scrotal wall. 6. Otherwise unremarkable scrotal ultrasound. CBC was unremarkable, electrolytes revealed dehydration with a BUN/creatinine of 36/1.4, urinalysis positive for infection I administered ceftriaxone 1 g IV x1. Patient has a UTI and possibly even mild left epididymitis I will treat him as an outpatient with oral doxycycline x10 days. Differential diagnoses considered, included but not limited to acute coronary syndrome, pulmonary embolism, aortic dissection, abdominal aortic aneurysm, sepsis, stroke, meningitis, encephalitis, pneumonia, appendicitis, cholecystitis, bowel obstruction, pyelonephritis, nephrolithiasis, cystitis, as well as metabolic, hematologic, and electrolyte abnormalities. As well as abscess, cellulitis, fractures, and dislocations. Patient feels much better at this time, and vital signs are normal, symptoms have improved. I did give strict instructions to return to the ED if symptoms continue or worsen, patient will otherwise follow-up with primary care physician. Patient understood instructions and agreed to plan. Disclaimer: Inadvertent spelling and grammatical errors are likely due to EHR/d ictation software use and do not reflect on the overall quality of patient care. Also, please note that the electronic time recorded on this note does not necessarily reflect the actual time of the patient encounter. Departure Diagnosis: Primary Impression: Acute UTI Additional Impression: Acute epididymitis Condition: AVILA Freed MD November 11, 2018 20:02
[2018-11-11] MEDS ORDERED: SOD CHLORIDE 0.9% 500 ML IV STA (20:07)
[2018-11-11] MEDS ORDERED: OXYCODONE/ACETAMINOPHEN (5/325) TAB PO ONE (20:30)
[2018-11-11] MEDS ORDERED: CEFTRIAXONE 1 GM/50 ML (PMX) 50 ML IVPB ONE (21:00)
[2018-11-11] MEDS ORDERED: OXYC-279 PO (21:02)
[2018-11-11] MEDS ORDERED: DOXY100T20 PO (21:02)
[2018-11-11 22:08] VITALS: BP 145/74; PULSE 84; RESP 16
== END 2018-11-11 22:10 | disposition home or self-care (01) ==
LOC: E/R 19:39
DX: N39.0 Urinary tract infection, site not specified (principal); N45.1 Epididymitis; I12.9 Hypertensive chronic kidney disease with stage 1 through stage 4 chronic kidney disease, or unspecified chronic kidney disease; N18.9 Chronic kidney disease, unspecified; J45.909 Unspecified asthma, uncomplicated; I25.10 Atherosclerotic heart disease of native coronary artery without angina pectoris; I25.2 Old myocardial infarction; Z79.82 Long term (current) use of aspirin; Z79.01 Long term (current) use of anticoagulants
CPT/HCPCS: 76870; 80048; 81001; 85025; 87086; 96374; 99285; J0696; J7040

== ENCOUNTER 2019-02-25 17:44 | Emergency (ER) | payer OTHER ==
[~2019-02-25] VITALS: Wt 81.5 kg
[~2019-02-25 17:44] MED LIST changes: +DOXY100T20 PO; +LEVO750T25 PO; +OXYC-279 PO
[2019-02-25 19:51] VITALS: BP 148/90; PULSE 78; RESP 19
== END 2019-02-25 19:51 | disposition home or self-care (01) ==
LOC: FTE 17:44
DX: N39.0 Urinary tract infection, site not specified (principal); J45.909 Unspecified asthma, uncomplicated
CPT/HCPCS: 81003; 99283